=== PATIENT | female | born 1960 | race Caucasian/White ===

== ENCOUNTER → 2016-10-21 | Outpatient (CLI) | payer OTHER ==
[~2016-10-21] MED LIST: BETA15CR5 TP; CHOL500050 PO; ENOX100S5 SQ; FLUTICASONE NAS; LEVO150T PO; ROSU20TA PO; UBID1CAP24 PO; VERAMYST
== END | disposition home or self-care (01) ==
LOC: EDSTATUS 06-28 15:34 → ROC 11:20
PROVIDERS: ATTEND Radiology Radiation Oncology
DX: C34.11 Malignant neoplasm of upper lobe, right bronchus or lung (principal); J70.0 Acute pulmonary manifestations due to radiation; R59.0 Localized enlarged lymph nodes; Z92.3 Personal history of irradiation; Z92.21 Personal history of antineoplastic chemotherapy
CPT/HCPCS: 99212; G0463